=== PATIENT | female | born 1950 | race African-American/Black ===

== ENCOUNTER 2018-09-18 18:54 | Emergency (ER) | payer OTHER ==
[2018-09-18 19:11] VITALS: BMI 37.2
[2018-09-18 20:42] LABS: BASO % 0.9 % (0-2.0); EOS % 0.8 % (0-4.5); HEMATOCRIT 38.4 % (32.4-45.2); HEMOGLOBIN 12.3 GM/dL (10.7-15.3); LYMPH % 30.6 % (8-40); MCH 28.3 pg (25.7-33.7); MCHC 32.1 g/dl (32.0-36.0); MEAN CELL VOLUME 88.1 fl (80-96); MEAN PLT VOLUME 11.1 fl (7.5-11.1); MONO % 11.2 % (3.8-10.2); NEUT % 56.5 % (42.8-82.8); PLATELET COUNT 172 K/MM3 (134-434); RBC 4.36 M/mm3 (3.60-5.2); RDW 13.3 % (11.6-15.6); WHITE BLOOD COUNT 5.9 K/mm3 (4.0-10.0)
[2018-09-18] MEDS ORDERED: METHOCARBAMOL 500 MG TABLET PO ONE (20:48)
[2018-09-18] MEDS ORDERED: ACETAMINOPHEN 1000 MG/100 ML VIAL (NON FORMULARY) IVPB ONE (20:48)
[2018-09-18] MEDS ORDERED: LIDOCAINE 5% TOPICAL PATCH TP ONE (20:48)
[2018-09-18 21:12] LABS: URINE APPEARANCE CLEAR; URINE BILIRUBIN NEGATIVE (<2.0 mg/dL); URINE COLOR COLORLESS; URINE GLUCOSE (UA) NEGATIVE (NEGATIVE); URINE KETONE NEGATIVE (NEGATIVE); URINE LEUK ESTERASE NEGATIVE (NEGATIVE); URINE NITRITE NEGATIVE (NEGATIVE); URINE PROTEIN NEGATIVE (NEGATIVE); URINE UROBILINOGEN NEGATIVE mg/dL (0.2-1.0)
[2018-09-18] MEDS ORDERED: ACETAMINOPHEN INJECTION 100 ML IVPB ONE (21:14)
[2018-09-18] MEDS ORDERED: LIDOCAINE 5% TOPICAL PATCH ONE (21:14)
[2018-09-18] MEDS ORDERED: METHOCARBAMOL 500 MG TABLET ONE (21:14)
--- NOTE | 2018-09-18 21:14 | PDOC ---
History of Present Illness - General History Source: Patient Exam Limitations: No Limitations - History of Present Illness Initial Comments: 09/18/18 21:18 The patient is a 68 year old female, with a significant past medical history of DM, CHF, cardiomyopathy, who presents to the emergency department with, 2 days of left thoracic back pain. She describes her pain as radiating to her left leg. She notes taking Tylenol and using a heating patch with minimal relief. She notes occasional abnormal heart sounds and right ear discomfort. She denies recent fevers, chills, headache or dizziness. She denies recent nausea, vomit, diarrhea or constipation. She denies recent dysuria, frequency, urgency or hematuria. She denies recent chest pain or shortness of breath. Allergies: IV contrast. Past surgical history: Hysterectomy. Social history: Nonsmoker. Denies EtOH use and recreational drug use. Primary Care Physician: Dr. Jc Carolina <Adali Aquino - Last Filed: 09/18/18 21:18> <Socorro Taylor - Last Filed: 09/19/18 02:13> - General Chief Complaint: Pain, Acute Stated Complaint: BACK PAIN Time Seen by Provider: 09/18/18 19:29 Past History <Adali Aquino - Last Filed: 09/18/18 21:18> - Past Medical History Anemia: No Asthma: No Cancer: No Cardiac Disorders: Yes (defib) CVA: No COPD: No CHF: No Dementia: No Diabetes: Yes GI Disorders: No Disorders: No HTN: Yes Hypercholesterolemia: No Liver Disease: No Seizures: No Thyroid Disease: No - Surgical History Abdominal Surgery: No Appendectomy: No Cardiac Surgery: Yes (defib) Cholecystectomy: No Lung Surgery: No Neurologic Surgery: No Orthopedic Surgery: Yes ("heel spur surgery") - Suicide/Smoking/Psychosocial Hx Smoking Status: No Smoking History: Never smoked Have you smoked in the past 12 months: No Number of Cigarettes Smoked Daily: 0 Hx Alcohol Use: Yes (social drinker) Drug/Substance Use Hx: No Hx Substance Use Treatment: No <Socorro Taylor - Last Filed: 09/19/18 02:13> - Past Medical History Allergies/Adverse Reactions: Allergies Allergy/AdvReac Type Severity Reaction Status Date / Time No Known Drug Allergies Allergy Verified 09/18/18 19:11 IV CONTRAST DYE Allergy Intermediate Uncoded 09/18/18 19:11 Home Medications: Ambulatory Orders Furosemide [Lasix -] 20 mg PO DAILY 10/05/13 Lisinopril [Prinivil] 2.5 mg PO DAILY #0 tablet 10/09/13 Metoprolol Succinate [Toprol XL -] 25 mg PO DAILY #0 10/09/13 Losartan Potassium 25 mg PO DAILY 09/18/18 Methocarbamol [Robaxin -] 500 mg PO TID #30 tablet 09/18/18 Polyethylene Glycol 3350 [Miralax (For Daily Use) -] 17 gm PO ONCE #1 bottle Torsemide 20 mg PO DAILY 09/18/18 metFORMIN HCL [Metformin HCl] 500 mg PO DAILY 09/18/18 Review of Systems - Review of Systems Able to Perform ROS?: Yes Comments:: 09/18/18 21:18 GENERAL/CONSTITUTIONAL: No fever or chills. No weakness. HEAD, EYES, EARS, NOSE AND THROAT: No change in vision. No ear pain or discharge. No sore throat. CARDIOVASCULAR: No chest pain or shortness of breath. RESPIRATORY: No cough, wheezing, or hemoptysis. GASTROINTESTINAL: No nausea, vomiting, diarrhea or constipation. GENITOURINARY: No dysuria, frequency, or change in urination. MUSCULOSKELETAL: Back pain. SKIN: No rash NEUROLOGIC: No headache, vertigo, loss of consciousness, or change in strength/ sensation. ENDOCRINE: No increased thirst. No abnormal weight change. HEMATOLOGIC/LYMPHATIC: No anemia, easy bleeding, or history of blood clots. ALLERGIC/IMMUNOLOGIC: No hives or skin allergy. All Other Systems: Reviewed and Negative <Adali Aquino - Last Filed: 09/18/18 21:18> *Physical Exam - Vital Signs Last Vital Signs Temp Pulse Resp BP Pulse Ox 97.7 F 48 L 18 134/83 98 09/18/18 19:09 09/18/18 19:09 09/18/18 19:09 09/18/18 19:09 09/18/18 19:09 - Physical Exam Comments: 09/18/18 21:18 GENERAL: Awake, alert, and fully oriented, in no acute distress HEAD: No signs of trauma EYES: PERRLA, EOMI, sclera anicteric, conjunctiva clear +ENT:Sclerosed left ear. NECK: Normal ROM, supple, no lymphadenopathy, JVD, or masses LUNGS: Breath sounds equal, clear to auscultation bilaterally. No wheezes, and no crackles HEART: Regular rate and rhythm, normal S1 and S2, no murmurs, rubs or gallops ABDOMEN: Soft, nontender, normoactive bowel sounds. No guarding, no rebound. No masses +BACK: left paraspinal back pain EXTREMITIES: Normal range of motion, no edema. No clubbing or cyanosis. No cords, erythema, or tenderness NEUROLOGICAL: Cranial nerves II through XII grossly intact. Normal speech, normal gait SKIN: Warm, Dry, normal turgor, no rashes or lesions noted. <Adali Aquino - Last Filed: 09/18/18 21:18> - Vital Signs Last Vital Signs Temp Pulse Resp BP Pulse Ox 97.7 F 48 L 18 134/83 98 09/18/18 19:09 09/18/18 19:09 09/18/18 19:09 09/18/18 19:09 09/18/18 19:09 <Socorro Taylor - Last Filed: 09/19/18 02:13> Moderate Sedation - Procedure Monitoring Vital Signs: Procedure Monitoring Vital Signs Temperature 97.7 F 09/18/18 19:09 Pulse Rate 48 L 09/18/18 19:09 Respiratory Rate 18 09/18/18 19:09 Blood Pressure 134/83 09/18/18 19:09 O2 Sat by Pulse Oximetry (%) 98 09/18/18 19:09 <Adali Aquino - Last Filed: 09/18/18 21:18> - Procedure Monitoring Vital Signs: Procedure Monitoring Vital Signs Temperature 97.7 F 09/18/18 19:09 Pulse Rate 48 L 09/18/18 19:09 Respiratory Rate 18 09/18/18 19:09 Blood Pressure 134/83 09/18/18 19:09 O2 Sat by Pulse Oximetry (%) 98 09/18/18 19:09 <Socorro Taylor - Last Filed: 09/19/18 02:13> ED Treatment Course - LABORATORY CBC & Chemistry Diagram: 09/18/18 20:28 09/18/18 20:28 - ADDITIONAL ORDERS Additional order review: Laboratory Results 09/18/18 20:28 Urine Color Colorless Urine Appearance Clear Urine pH 5.0 Ur Specific [place] 1.005 L Urine Protein Negative Urine Glucose (UA) Negative Urine Ketones Negative Urine Blood Negative Urine Nitrite Negative Urine Bilirubin Negative Urine Urobilinogen Negative Ur Leukocyte Esterase Negative 09/18/18 20:28 RBC 4.36 MCV 88.1 MCHC 32.1 RDW 13.3 MPV 11.1 Neutrophils % 56.5 Lymphocytes % 30.6 Monocytes % 11.2 H Eosinophils % 0.8 Basophils % 0.9 <Adali Aquino - Last Filed: 09/18/18 21:18> - LABORATORY CBC & Chemistry Diagram: 09/18/18 20:28 09/18/18 20:28 - ADDITIONAL ORDERS Additional order review: 09/18/18 20:28 RBC 4.36 MCV 88.1 MCHC 32.1 RDW 13.3 MPV 11.1 Neutrophils % 56.5 Lymphocytes % 30.6 Monocytes % 11.2 H Eosinophils % 0.8 Basophils % 0.9 - RADIOLOGY Radiology Studies Ordered: Category Date Time Status SPINE-LUMBAR ONLY [RAD] Stat Radiology 09/18/18 20:49 Ordered SPINE-THORACIC [RAD] Stat Radiology 09/18/18 20:49 Ordered <Socorro Taylor - Last Filed: 09/19/18 02:13> Medical Decision Making - Medical Decision Making 09/18/18 21:13 WBC is normal. Exam is normal Pt has left paraspinal back pain with questionable radiation down the left leg. We will get spine xrays. 09/18/18 21:31 Pt's Chem and UA are normal. 09/18/18 21:32 Trop is negative 09/19/18 02:13 XRAYs normal. Pt will be treated for muscle pain and constipation <Socorro Taylor - Last Filed: 09/19/18 02:13> *DC/Admit/Observation/Transfer - Attestations Scribe Attestion: 09/18/18 21:18 Documentation prepared by Adali Aquino, acting as emergency medical technician basic for Socorro Taylor MD. <Adali Aquino - Last Filed: 09/18/18 21:18> - Discharge Dispostion Decision to Admit order: No <Socorro Taylor - Last Filed: 09/19/18 02:13> Diagnosis at time of Disposition: Musculoskeletal back pain, Constipation - Discharge Dispostion Disposition: HOME Condition at time of disposition: Stable - Prescriptions Prescriptions: Methocarbamol [Robaxin -] 500 mg PO TID #30 tablet Polyethylene Glycol 3350 [Miralax (For Daily Use) -] 17 gm PO ONCE #1 bottle - Referrals Referrals: Gildardo Carolina MD [Primary Care Provider] - - Patient Instructions Printed Discharge Instructions: Vegetarian Diet - Post Discharge Activity
[2018-09-18 21:22] LABS: ALBUMIN 4.1 g/dl (3.4-5.0); ALK PHOS 104 U/L (45-117); ANION GAP 5 MMOL/L (8-16); BILIRUBIN,TOTAL 0.4 mg/dL (0.2-1); BLOOD UREA NITROGEN 12 mg/dL (7-18); CALCIUM 9.1 mg/dL (8.5-10.1); CHLORIDE 106 mmol/L (98-107); CO2 30 mmol/L (21-32); CREATININE 0.9 mg/dL (0.55-1.3); GLUCOSE,RANDOM 89 mg/dL (74-106); POTASSIUM 3.9 mmol/L (3.5-5.1); SGOT/AST 22 U/L (15-37); SGPT/ALT 20 U/L (13-61); SODIUM 141 mmol/L (136-145); TOT PROT 8.6 g/dl (6.4-8.2)
[2018-09-18] MEDS ORDERED: LIDOCAINE PATCH REMOVAL MC SCH (22:00)
[2018-09-18] MEDS ORDERED: LACTULOSE 20 GM/30 ML UDC (FOR ORAL USE ONLY) PO ONE (22:29)
[2018-09-18] MEDS ORDERED: LACTULOSE 20 GM/30 ML UDC (FOR ORAL USE ONLY) ONE (22:35)
[2018-09-18 22:58] VITALS: BP 133/76; PULSE 61; TEMP 97.9
--- NOTE | 2018-09-23 09:45 | EKG ---
Test Reason : Blood Pressure : / mmHG Vent. 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
== END 2018-09-18 22:58 | disposition home or self-care (01) ==
LOC: JER 18:54
PROC: 3E033NZ Introduction of Analgesics, Hypnotics, Sedatives into Peripheral Vein, Percutaneous Approach (ICD-10-PCS; principal; 2018-09-18)
DX: M54.5 Low back pain (principal); K59.00 Constipation, unspecified; I11.0 Hypertensive heart disease with heart failure; I50.9 Heart failure, unspecified
CPT/HCPCS: 36415; 72070-TC-FY; 72100-TC-FY; 80053; 81003; 82550; 82553; 84484; 85025; 87086; 93005; 93010; 99282-25; J0131

== ENCOUNTER 2020-10-23 04:12 | Day surgery (SDC) | payer OTHER ==
[2020-10-22 10:13] VITALS: BMI 38.2
[~2020-10-23 04:12] MED LIST: BACITRACIN 50,000 UNITS VIAL TP ONE; LIDOCAINE HCL 1%, 10 MG/ML (50 mL VIAL) INF ONE
[2020-10-23] MEDS ORDERED: LIDOCAINE HCL 1%, 10 MG/ML (20ML VIAL) ONE ×3 (08:27→11:11)
[2020-10-23 08:35] LABS: POTASSIUM 4.5 mmol/L (3.5-5.1)
[2020-10-23 08:36] LABS: BLOOD UREA NITROGEN 34.1 mg/dL (7-18); CALCIUM 9.1 mg/dL (8.5-10.1)
[2020-10-23 08:40] LABS: CREATININE 1.5 mg/dL (0.55-1.3)
[2020-10-23] MEDS ORDERED: SUCCINYLCHOLINE CHLORIDE 200 MG/10 ML SYRINGE ONE (09:04)
[2020-10-23] MEDS ORDERED: PROPOFOL 20 ML ONE ×2 (09:04)
[2020-10-23] MEDS ORDERED: MIDAZOLAM HCL 2 MG/2 ML SINGLE DOSE VIAL ONE (09:36)
[2020-10-23] MEDS ORDERED: ceFAZolin 2 GRAM PREMIX BAG IVPB ONE (09:45)
[2020-10-23] MEDS ORDERED: BACITRACIN 50,000 UNITS VIAL TP ONE (10:00)
[2020-10-23] MEDS ORDERED: LIDOCAINE HCL 1%, 10 MG/ML (50 mL VIAL) INF ONE ×2 (10:00)
[2020-10-23] MEDS ORDERED: oxyCODONE HCL 5 MG TABLET PO PRN (11:36)
[2020-10-23] MEDS ORDERED: ONDANSETRON 4 MG/2 ML VIAL IVPUSH PRN (11:36)
[2020-10-23] MEDS ORDERED: LACTATED RINGERS SOLUTION 1,000 ML IV SCH (11:45)
[2020-10-23 13:07] VITALS: TEMP 97.4
[2020-10-23 13:45] VITALS: BP 113/61; PULSE 75
== END 2020-10-23 13:45 | disposition home or self-care (01) ==
LOC: JASU-SURG 04:12
PROVIDERS: ATTEND Urology
PROC: 01HY0MZ Insertion of Neurostimulator Lead into Peripheral Nerve, Open Approach (ICD-10-PCS; 2020-10-23)
PROC: 0JH70BZ Insertion of Single Array Stimulator Generator into Back Subcutaneous Tissue and Fascia, Open Approach (ICD-10-PCS; principal; 2020-10-23 09:00)
DX: N39.498 Other specified urinary incontinence (principal); N32.81 Overactive bladder; E11.9 Type 2 diabetes mellitus without complications; E66.01 Morbid (severe) obesity due to excess calories; I10 Essential (primary) hypertension; J44.9 Chronic obstructive pulmonary disease, unspecified
CPT/HCPCS: 64581; 64590; C1767; C1778; 36415; 76000-TC-FY; 80048; 94760

== ENCOUNTER 2022-01-12 04:12 | Day surgery (SDC) | payer OTHER ==
[2022-01-07 13:57] VITALS: BMI 39.6
[2022-01-12] MEDS ORDERED: ONABOTULINUMTOXINA 200 UNIT/VIAL VIAL IM ONE (13:45)
[2022-01-12] MEDS ORDERED: PROPOFOL 20 ML ONE (14:34)
[2022-01-12] MEDS ORDERED: ceFAZolin SODIUM 1 GM VIAL IVPB ONE (14:45)
[2022-01-12] MEDS ORDERED: PHENYLEPHRINE HCL 10 MG/1 ML SINGLE DOSE VIAL ONE ×2 (14:51)
[2022-01-12] MEDS ORDERED: ONDANSETRON 4 MG/2 ML VIAL IVPUSH PRN (19:23)
[2022-01-12 19:57] LABS: HEMATOCRIT 35.8 % (32.4-45.2); HEMOGLOBIN 11.6 GM/dL (10.7-15.3); MCH 28.6 pg (25.7-33.7); MCHC 32.5 g/dl (32.0-36.0); MEAN PLT VOLUME 11.6 fl (7.5-11.1); PLATELET COUNT 160 10^3/uL (134-434); RBC 4.07 M/mm3 (3.60-5.2)
[2022-01-12 20:24] LABS: ALBUMIN 3.7 g/dl (3.4-5.0); CALCIUM 9.2 mg/dL (8.5-10.1)
[2022-01-12 20:25] LABS: BLOOD UREA NITROGEN 21.1 mg/dL (7-18)
[2022-01-12 20:27] LABS: CREATININE 1.2 mg/dL (0.55-1.3)
[2022-01-12 20:29] LABS: BILIRUBIN,TOTAL 0.3 mg/dL (0.2-1); TOT PROT 7.6 g/dl (6.4-8.2)
[2022-01-13] MEDS: hydrALAZINE HCL 25 MG TABLET (FP) PO SCH ×2 (06:33→13:22)
[2022-01-13 07:26] LABS: BASO % 0.3 % (0-2.0); EOS % 2.4 % (0-4.5); HEMATOCRIT 32.7 % (32.4-45.2); HEMOGLOBIN 10.4 GM/dL (10.7-15.3); LYMPH % 31.6 % (8-40); MCH 28.1 pg (25.7-33.7); MCHC 31.8 g/dl (32.0-36.0); MEAN CELL VOLUME 88.2 fl (80-96); MEAN PLT VOLUME 11.1 fl (7.5-11.1); MONO % 12.3 % (3.8-10.2); NEUT % 53.4 % (42.8-82.8); PLATELET COUNT 141 10^3/uL (134-434); RBC 3.71 M/mm3 (3.60-5.2); RDW 13.7 % (11.6-15.6); WHITE BLOOD COUNT 4.4 K/mm3 (4.0-10.0)
[2022-01-13] MEDS: ISOSORBIDE DINITRATE 20 MG TABLET PO SCH ×2 (09:22→14:31)
[2022-01-13] MEDS ORDERED: PANTOPRAZOLE 40 MG TABLET PO SCH (10:00)
[2022-01-13] MEDS ORDERED: metoPROLOL SUCCINATE 25 MG TAB.SR.24H (FP) PO SCH (10:00)
[2022-01-13] MEDS ORDERED: TORSEMIDE 20 MG TABLET (FP) PO SCH (10:00)
[2022-01-13] MEDS ORDERED: ASPIRIN 81 MG CHEWABLE TABLETS PO SCH (10:00)
[2022-01-13 12:36] VITALS: TEMP 98.8
[2022-01-13 16:30] VITALS: BP 111/51; PULSE 84
== END 2022-01-13 17:15 | disposition home or self-care (01) ==
LOC: JASU-SURG 04:12 → JASUSAT 04:12 → J2W 20:44 → JASUSAT 01-13 17:15
PROVIDERS: ATTEND Urology
PROC: 3E0K8GC Introduction of Other Therapeutic Substance into Genitourinary Tract, Via Natural or Artificial Opening Endoscopic (ICD-10-PCS; 2022-01-12)
PROC: 0T7D8ZZ Dilation of Urethra, Via Natural or Artificial Opening Endoscopic (ICD-10-PCS; principal; 2022-01-12 12:00)
PROC: 3E0K8GC Introduction of Other Therapeutic Substance into Genitourinary Tract, Via Natural or Artificial Opening Endoscopic (ICD-10-PCS; 2022-01-12 12:00)
DX: N32.81 Overactive bladder (principal); N35.92 Unspecified urethral stricture, female
CPT/HCPCS: 36415; 80053; 82962; 84484; 85025; 85027; 87081; 87086; 88108; 93005; 93010; 93306-TC; 94760; J0585

== ENCOUNTER 2022-04-21 04:06 | Day surgery (SDC) | payer OTHER ==
[2022-04-17 11:12] VITALS: BMI 38.7
[2022-04-21] MEDS ORDERED: MIDAZOLAM HCL 2 MG/2 ML SINGLE DOSE VIAL ONE (10:15)
[2022-04-21] MEDS ORDERED: ceFAZolin SODIUM 1 GM VIAL ONE (11:01)
[2022-04-21] MEDS ORDERED: ceFAZolin SODIUM 1 GM VIAL IVPB ONE (11:09)
[2022-04-21 11:50] VITALS: RESP 20
[2022-04-21 13:36] VITALS: BP 130/62; PULSE 85
[2022-04-21 13:56] VITALS: TEMP 96.2
== END 2022-04-21 14:14 | disposition home or self-care (01) ==
LOC: JASU-SURG 04:06
PROVIDERS: ATTEND Urology
PROC: 0TF4XZZ Fragmentation in Left Kidney Pelvis, External Approach (ICD-10-PCS; principal; 2022-04-21 11:12)
DX: N20.0 Calculus of kidney (principal)
CPT/HCPCS: 82962

== ENCOUNTER 2022-05-12 02:17 | Inpatient (IN) | payer OTHER ==
[2022-05-12] MEDS ORDERED: LIDOCAINE 5% TOPICAL PATCH TP ONE (03:09)
[2022-05-12] MEDS ORDERED: morphine CARPU-JECT 4 MG/1 ML DISP.SYRIN IVPUSH ONE (03:09)
[2022-05-12] MEDS ORDERED: ACETAMINOPHEN 1000 MG/100 ML BAG IVPB ONE (03:39)
[2022-05-12] MEDS ORDERED: ACETAMINOPHEN INJECTION 100 ML IVPB ONE (03:39)
[2022-05-12] MEDS ORDERED: LIDOCAINE 5% TOPICAL PATCH ONE (03:39)
[2022-05-12 04:23] LABS: BASO % 0.6 % (0-2.0); EOS % 0.8 % (0-4.5); HEMOGLOBIN 12.2 GM/dL (10.7-15.3); LYMPH % 21.3 % (8-40); MCHC 33.1 g/dl (32.0-36.0); MEAN CELL VOLUME 87.6 fl (80-96); MEAN PLT VOLUME 11.7 fl (7.5-11.1); MONO % 9.5 % (3.8-10.2); NEUT % 67.8 % (42.8-82.8); PLATELET COUNT 194 10^3/uL (134-434); RBC 4.22 M/mm3 (3.60-5.2); WHITE BLOOD COUNT 6.7 K/mm3 (4.0-10.0)
[2022-05-12 04:32] LABS: INR 1.07 (0.83-1.09); PROTHROMBIN TIME (PATIENT) 12.3 SEC (9.7-13.0)
[2022-05-12 04:35] LABS: ACTIVATED PTT 26.2 SECONDS (25.2-36.5)
[2022-05-12 04:42] LABS: ALBUMIN 4.1 g/dl (3.4-5.0); CALCIUM 9.2 mg/dL (8.5-10.1); MAGNESIUM 2.3 mg/dL (1.8-2.4)
[2022-05-12 04:45] LABS: CREATININE 1.4 mg/dL (0.55-1.3)
[2022-05-12 04:47] LABS: BILIRUBIN,TOTAL 0.4 mg/dL (0.2-1); TOT PROT 8.3 g/dl (6.4-8.2)
[2022-05-12] MEDS ORDERED: morphine CARPU-JECT 2 MG/1 ML DISP.SYRIN IM ONE (05:26)
[2022-05-12 05:44] LABS: EPI CELLS >36 /uL (0-25.1); HYALINE CASTS 0 /uL (0-3.1); URINE APPEARANCE CLEAR; URINE BACTERIA 219 /uL (0-1359); URINE BILIRUBIN NEGATIVE (NEGATIVE); URINE COLOR YELLOW; URINE GLUCOSE (UA) 3+ (NEGATIVE); URINE KETONE NEGATIVE (NEGATIVE); URINE LEUK ESTERASE 1+ (NEGATIVE); URINE NITRITE NEGATIVE (NEGATIVE); URINE PROTEIN NEGATIVE (NEGATIVE); URINE RBC 12 /uL (0-23.9); URINE UROBILINOGEN 0.2 mg/dL (0.2-1.0); URINE WBC 149 /uL (0-25.8)
[2022-05-12] MEDS ORDERED: CEFTRIAXONE 1,000 MG in DEXTROSE 5%-WATER - 50 ML IVPB ONE (06:04)
[2022-05-12] MEDS ORDERED: CEFTRIAXONE 1 GM/50 ML BAG ONE (06:08)
[2022-05-12] MEDS ORDERED: METHOCARBAMOL 500 MG TABLET PO ONE (07:38)
[2022-05-12] MEDS ORDERED: METHOCARBAMOL 500 MG TABLET ONE (08:03)
[2022-05-12] MEDS ORDERED: DEXTROSE 5%-0.45% SALINE 1,000 ML IV SCH (14:30)
[2022-05-12] MEDS ORDERED: methylPREDNISolone NA SUCC 125 MG/2 ML VIAL IVPUSH ONE (14:37)
[2022-05-12] MEDS ORDERED: SODIUM CHLORIDE 1,000 ML IV SCH (15:15)
[2022-05-12] MEDS ORDERED: methylPREDNISolone NA SUCC 125 MG/2 ML VIAL ONE (15:30)
[2022-05-12] MEDS ORDERED: CYCLOBENZAPRINE HCL 10 MG TABLET (FP) PO PRN (22:00)
[2022-05-13] MEDS: INSULIN SLIDING SCALE (NOVOLOG) 1 VIAL SQ SCH ×5 (01:54→22:30)
[2022-05-13] MEDS: LIDOCAINE PATCH REMOVAL MC SCH ×3 (01:55→22:46)
[2022-05-13] MEDS ORDERED: CEFTRIAXONE 1 GM in DEXTROSE 5%-WATER - 50 ML IVPB SCH (10:00)
[2022-05-13] MEDS ORDERED: TORSEMIDE 20 MG TABLET (FP) PO SCH (10:15)
[2022-05-13] MEDS: metoPROLOL SUCCINATE 25 MG TAB.SR.24H (FP) PO SCH (10:51)
[2022-05-13] MEDS: ASPIRIN 81 MG CHEWABLE TABLETS PO SCH (10:51)
[2022-05-13] MEDS: SACUBITRIL/VALSARTAN 24 MG-26 MG TABLET PO SCH ×2 (10:51→22:21)
[2022-05-13] MEDS: BACLOFEN 10 MG TABLET (FP) PO SCH (11:00)
[2022-05-13 11:20] LABS: BASO % 0.2 % (0-2.0); EOS % 0.1 % (0-4.5); HEMATOCRIT 36.7 % (32.4-45.2); HEMOGLOBIN 12.1 GM/dL (10.7-15.3); LYMPH % 12.6 % (8-40); MCH 28.5 pg (25.7-33.7); MCHC 32.8 g/dl (32.0-36.0); MEAN CELL VOLUME 86.7 fl (80-96); MEAN PLT VOLUME 11.8 fl (7.5-11.1); MONO % 8.5 % (3.8-10.2); NEUT % 78.6 % (42.8-82.8); PLATELET COUNT 180 10^3/uL (134-434); RBC 4.24 M/mm3 (3.60-5.2); RDW 13.6 % (11.6-15.6)
[2022-05-13 11:45] LABS: ALBUMIN 3.8 g/dl (3.4-5.0); BLOOD UREA NITROGEN 19.5 mg/dL (7-18); CALCIUM 9.4 mg/dL (8.5-10.1)
[2022-05-13 11:48] VITALS: BMI 38.0
[2022-05-13 11:48] LABS: CREATININE 1.2 mg/dL (0.55-1.3)
[2022-05-13 11:52] LABS: BILIRUBIN,TOTAL 0.4 mg/dL (0.2-1); TOT PROT 7.8 g/dl (6.4-8.2)
[2022-05-13] MEDS: hydrALAZINE HCL 25 MG TABLET (FP) PO SCH ×2 (13:57→22:21)
[2022-05-13] MEDS: ISOSORBIDE DINITRATE 20 MG TABLET PO SCH ×2 (13:58→17:17)
[2022-05-13] MEDS: GABAPENTIN 300 MG CAPSULE PO SCH ×2 (13:58→22:21)
[2022-05-13] MEDS ORDERED: methylPREDNISolone NA SUCC 40 MG/1 ML VIAL IVPUSH ONE (21:05)
[2022-05-14] MEDS: GABAPENTIN 300 MG CAPSULE PO SCH ×2 (05:45→13:45)
[2022-05-14] MEDS: hydrALAZINE HCL 25 MG TABLET (FP) PO SCH ×3 (05:45→15:54)
[2022-05-14] MEDS: INSULIN SLIDING SCALE (NOVOLOG) 1 VIAL SQ SCH ×3 (06:27→17:23)
[2022-05-14 07:39] VITALS: PULSE 60; RESP 18
[2022-05-14 08:13] LABS: BASO % 0.4 % (0-2.0); HEMATOCRIT 34.8 % (32.4-45.2); HEMOGLOBIN 11.6 GM/dL (10.7-15.3); LYMPH % 8.7 % (8-40); MCH 28.8 pg (25.7-33.7); MCHC 33.2 g/dl (32.0-36.0); MEAN CELL VOLUME 86.5 fl (80-96); MEAN PLT VOLUME 11.5 fl (7.5-11.1); MONO % 0.6 % (3.8-10.2); NEUT % 90.3 % (42.8-82.8); PLATELET COUNT 177 10^3/uL (134-434); RBC 4.02 M/mm3 (3.60-5.2); RDW 13.7 % (11.6-15.6); WHITE BLOOD COUNT 7.5 K/mm3 (4.0-10.0)
[2022-05-14 09:03] LABS: ALBUMIN 3.5 g/dl (3.4-5.0); CALCIUM 9.2 mg/dL (8.5-10.1)
[2022-05-14 09:04] LABS: BLOOD UREA NITROGEN 30.3 mg/dL (7-18)
[2022-05-14 09:06] LABS: CREATININE 1.4 mg/dL (0.55-1.3)
[2022-05-14 09:08] LABS: BILIRUBIN,TOTAL 0.2 mg/dL (0.2-1); TOT PROT 7.3 g/dl (6.4-8.2)
[2022-05-14] MEDS: ISOSORBIDE DINITRATE 20 MG TABLET PO SCH ×5 (11:39→17:29)
[2022-05-14] MEDS: ASPIRIN 81 MG CHEWABLE TABLETS PO SCH (11:40)
[2022-05-14] MEDS: BACLOFEN 10 MG TABLET (FP) PO SCH (11:40)
[2022-05-14] MEDS: SACUBITRIL/VALSARTAN 24 MG-26 MG TABLET PO SCH (11:40)
[2022-05-14] MEDS: metoPROLOL SUCCINATE 25 MG TAB.SR.24H (FP) PO SCH ×2 (11:40→11:49)
[2022-05-14] MEDS ORDERED: POLYETHYLENE GLYCOL (HEALTHYLAX) 3350 17 GM PACKET PO SCH (12:15)
[2022-05-14 15:33] VITALS: BP 129/67; TEMP 98.4
== END 2022-05-14 18:15 | disposition home or self-care (01) | DRG 313 ==
LOC: JER 02:17 → JERBED 03:06 → OBSVTOIN 11:39 → J4S 05-13 02:45
PROVIDERS: ADMIT Internal Medicine; ATTEND Internal Medicine
DX: R07.9 Chest pain, unspecified (principal); I50.22 Chronic systolic (congestive) heart failure; I13.0 Hypertensive heart and chronic kidney disease with heart failure and stage 1 through stage 4 chronic kidney disease, or unspecified chronic kidney disease; R79.89 Other specified abnormal findings of blood chemistry; E66.9 Obesity, unspecified; N18.9 Chronic kidney disease, unspecified; E11.22 Type 2 diabetes mellitus with diabetic chronic kidney disease; Z68.38 Body mass index [BMI] 38.0-38.9, adult; E78.5 Hyperlipidemia, unspecified; I25.10 Atherosclerotic heart disease of native coronary artery without angina pectoris
CPT/HCPCS: 36415; 71045-TC-FY; 71250-TC; 71275-TC; 74175-TC; 80053; 80061; 81003; 82962; 83036; 83735; 84443; 84484; 85025; 85379; 85610; 85730; 86850; 86900; 86901; 87086; 93005; 93010; 93306-TC; 93970-TC; 99285-25; C9803-CS; G0378; J0475; U0003; U0005